=== PATIENT | female | born 1960 | race African-American/Black ===

== ENCOUNTER → 2021-06-23 | Outpatient (CLI) | payer OTHER ==
[~2021-06-23] VITALS: Ht 152.4 cm; Wt 68.0 kg
[~2021-06-23] MED LIST: METHADONE HCL40 MG PO; ULTRAM 50MG TAB50 MG PO
[2021-06-23 11:14] VITALS: BP 155/77
--- NOTE | 2021-06-23 11:34 | NUR ---
Pain Clinic Assessment: 1. History of Osteoarthritis: Not Applicable History of Rheumatoid Arthritis: Not Applicable 2. Height: 5 ft. 0 in. 152.4 cm. Weight: 150.0 lb. oz. 68.040 kg. Patient's BMI: 29.3 3. Vital Signs: BP: 155/77 Pulse: 64 Resp: 16 Temp: 02 Sat: 100 ECG Mon: 4. Pain Intensity: 6 5. Fall Risk: Dizziness: N Needs help standing or walking: N Fallen in the last 3 months: N Fall risk comments: 6. Patient on Blood Thinner: None 7. History of Hypertension: N 8. Opioid Therapy greater than 6 weeks: Y Opiate Contract Signed: 9. Risk Assessment Tool Provided: LOW-0 10. Functional Assessment Tool: 11. Recreational Drug Use: Never Drug Type: Tobacco Use: Current Every Day Smoker Tobacco Type: Cigarettes Amount or Packs/day: 2 CIG PER D How Many Years: 2 Alcohol Use: Yes Frequency: Weekly Quant: 3
--- NOTE | 2021-06-24 10:47 | HPC ---
[facility] [place] [address] PAIN MANAGEMENT CONSULTATION Name: OSKAR FERNÁNDEZ Room #: REG [facility]#: [id number] Admission: 06/23/21 Attend Phys: Yvan Palomino DO Discharge: Date of : 64 Report #: [id number] THIS REPORT FOR: cc: FAM - No family physician/PCP FAM - No family physician/PCP Yvan Palomino DO ~ DATE OF SERVICE: 06/23/2021 CHIEF COMPLAINT: Low back pain, bilateral lower extremity pain. HISTORY OF PRESENT ILLNESS: As you know, the patient is a 61-year-old female, who reports longstanding history of low back pain and bilateral upper buttock and bilateral lower extremity pain. The patient indicates pain began 11/19/2019. She denies injury or trauma. She has trialled conservative treatment to address this issue. She has also tried home exercise program without benefit. The patient currently takes methadone 90 mg per day. This is reportedly for opioid addiction. This is not for pain control. She sought evaluation with Dr. Diez in regards to possible surgical options to address low back and bilateral lower extremity symptoms. This was per the request of the patient's primary care physician, Dr. Oshea. It was determined at the last visit that the patient is not a surgical candidate and she was referred to our clinic to discuss interventional treatment options. The patient reports today her pain is continuous. She describes the pain as aching and pounding. Places current pain score 6/10, daily average at 8/10, worst pain has been is 8/10. The patient states pain is exacerbated with any type of activity, improves with rest and relaxation. The patient has been referred to our service to discuss interventional treatment options to address axial back pain and bilateral lower extremity pain. PAST MEDICAL HISTORY: 1. Osteoarthritis. 2. Seasonal allergies. 3. Opioid dependency. PAST SURGICAL HISTORY: Achilles surgery. SOCIAL HISTORY: The patient smokes 2 cigarettes per day, but has done as much as 1 pack per day for years. She denies IV or illicit drug use. Admits to approximately 3 alcohol beverages per week. She is a stay at home . She is not working, not receiving workmen's compensation nor is she trying to obtain disability benefits. She is not in litigation in regards to pain. She is unaccompanied at today's visit. REVIEW OF SYSTEMS: Positive for wearing corrective eyewear, blurred and double vision, heart trouble, low back pain, bilateral lower extremity pain. All other review of systems negative per 12-point review of systems other than those [address] [address] PAIN MANAGEMENT CONSULTATION Name: OSKAR FERNÁNDEZ Room #: REG [facility]#: [id number] Admission: 06/23/21 Attend Phys: Yvan Palomino DO Discharge: Date of : 64 Report #: [id number] listed in history of present illness. Pain impact score 32/70, moderate interference of daily activities secondary to pain. ALLERGIES: No known drug allergies. CURRENT MEDICATIONS: Methadone 90 mg per day. IMAGING: MRI lumbar spine obtained 03/23/2021 shows mild to moderate levoscoliosis from L2-L3 through L4-L5. No central canal narrowing, mild right foraminal narrowing at L2-L3, L3-L4 and mild left neural foraminal narrowing at L5-S1. PHYSICAL EXAMINATION: VITAL SIGNS: Blood pressure 155/77, pulse 64, respiratory rate 16 and unlabored. The patient 100% on room air. Height 5 feet tall, weight 150 pounds, BMI calculated 29.3. GENERAL: A well-developed, well-nourished, well-hydrated 61-year-old female, appears stated age. She is in no acute distress. Awake, alert and oriented x3. Current pain score is 6/10. HEENT: Normocephalic, atraumatic. Pupils equal, round and responsive to light. Extraocular muscles are intact. Speech is fluent. The patient deemed a good historian. She is wearing a mask in compliance with COVID-19 regulations. LUNGS: Clear. No wheeze, rhonchi, no rales. CARDIOVASCULAR: Regular. No appreciable gallop, no rub. ABDOMEN: Soft, mildly obese. EXTREMITIES: Show no clubbing, no cyanosis and no edema. MUSCULOSKELETAL: There is noted a levoscoliotic curvature of the lumbar spine. No spinous process tenderness. Seated straight leg raising is negative. Supine straight leg raising is negative bilaterally. Motor is 5/5 with no focal deficits. Reflexes 2+/4 at patella and Achilles. Ankle clonus negative. Babinski is negative. Fabere's test is negative. Modified Gaenslen's positive for axial low back pain. Ankle clonus negative. Babinski is negative. ASSESSMENT: 1. Spinal deformity. 2. Levoscoliosis of the lumbar spine with 32 degree Crowder angle. 3. Chronic low back pain. 4. Bilateral buttock and posterolateral thigh pain. 5. Spondylolisthesis at L4-L5. 6. Chronic lumbar radiculopathy. PLAN: 1. Based on today's physical exam, history the patient has provided, and the description the patient uses in regards to pain, it would appear she is [address] [address] PAIN MANAGEMENT CONSULTATION Name: OSKAR FERNÁNDEZ Room #: REG [facility]#: [id number] Admission: 06/23/21 Attend Phys: Yvan Palomino DO Discharge: Date of : 64 Report #: [id number] suffering from lumbar radiculopathy. The patient was seen by Neurosurgery and advised to trial conservative treatment in the form of a lumbar epidural injection to determine if her symptoms would improve with such procedures. The patient was subsequently then referred on to our clinic to discuss this option. We discussed with the patient today the findings of her imaging study. We are pleased to advise that there are only mild to moderate findings and no significant lateralizing features that would require surgery at this time. The patient received confirmation that this is the case from her Neurosurgeon prior to the referral to our clinic. We discussed with the patient the opportunity of undergoing a lumbar epidural injection. She is amenable to that procedure. 2. We will begin the authorization process for the patient to undergo lumbar epidural injection. We are hopeful this process can be done quickly. We will have the patient return once that authorization has been completed to undergo the first in a series of lumbar epidural injections under fluoroscopic guidance to address lumbar radicular pain. We have placed the patient on a tentative appointment for tomorrow, 06/24/2021. 3. No medication changes made at today's visit. We recommend the patient continue current medical therapy as prior prescribed. 4. We plan to see the patient back tomorrow to undergo lumbar epidural injection under fluoroscopic guidance in hopes of improving pain. We wish to thank Dr. Diez for the referral of this patient to our clinic. We will keep you apprised of her response to treatment as we address suspected lumbar radiculopathy. Again, we wish to thank you for the opportunity to see this patient in consultation. <ELECTRONICALLY SIGNED> By: Yvan Palomino DO 06/24/21 1047 [id number] [id number] Yvan Palomino DO /nt
== END ==
LOC: PAIN 06:42
PROVIDERS: ATTEND Anesthesiology Pain Medicine
DX: M41.86 Other forms of scoliosis, lumbar region (principal); G89.29 Other chronic pain; M43.16 Spondylolisthesis, lumbar region; Z79.899 Other long term (current) drug therapy; Z79.891 Long term (current) use of opiate analgesic

== ENCOUNTER → 2021-06-24 | Outpatient (CLI) | payer OTHER ==
[~2021-06-24] VITALS: Ht 152.4 cm; Wt 68.0 kg
--- NOTE | ~2021-06-24 | HPC ---
[facility] [place] [address] [place] [address] PAIN MANAGEMENT CONSULTATION Name: OSKAR FERNÁNDEZ [id number] Admission: 06/24/21 Attend Phys: Yvan Palomino DO Discharge: Date of : 64 Report #: [id number] THIS REPORT FOR: cc: FAM - No family physician/PCP FAM - No family physician/PCP Yvan Palomino DO ~ DATE OF SERVICE: 06/24/2021 CHIEF COMPLAINT: Low back pain, left lower extremity pain with paresthesias. HISTORY OF PRESENT ILLNESS: As you know, the patient is a 61-year-old female who reports low back pain, bilateral upper buttock and posterolateral thigh pain has been present since 11/19/2020. No injury or trauma. She has been referred to our service by the referring physician to trial epidural injection under fluoroscopic guidance. The patient was seen in consultation on 06/23/2021 and established today's appointment to undergo lumbar epidural injection under fluoroscopic guidance. This authorization had to be obtained. ALLERGIES: No known drug allergies. CURRENT MEDICATIONS: Methadone 90 mg once a day. SOCIAL HISTORY: The patient smokes 2 cigarettes per day, has done so up to 1 pack a day for years. Denies IV or illicit drug use. Admits to 3 alcoholic beverages per week. She is unaccompanied at today's visit. IMAGING: No new imaging available. PHYSICAL EXAMINATION: VITAL SIGNS: Blood pressure 158/81, pulse 66, respiratory rate 14 and unlabored. The patient is 98% on room air. Height 5 feet tall, 150 pounds, BMI calculated 29.3. GENERAL: Well-developed, well-nourished, well-hydrated 61-year-old female, appears stated age, pain is rated at 6/10. HEENT: Normocephalic, atraumatic. Pupils equal, round and responsive. She is wearing a mask in compliance with COVID-19 regulations. EXTREMITIES: Show no clubbing, no cyanosis, no edema. MUSCULOSKELETAL: Noted levoscoliotic curvature once again of the lumbar spine. No spinous process tenderness. Seated straight leg raising negative. Supine straight leg raising is negative. Motor is 5/5. Gait is normal. ASSESSMENT: 1. Spinal deformity. 2. Levoscoliosis of the lumbar spine with 30-degree Crowder angle. 3. Chronic low back pain. 4. Bilateral buttock and posterolateral thigh pain. [address] [address] PAIN MANAGEMENT CONSULTATION Name: OSKAR FERNÁNDEZ [facility] [id number] Admission: 06/24/21 Attend Phys: Yvan Palomino DO Discharge: Date of : 64 Report #: [id number] 5. Spondylolisthesis of L4 on L5. 6. Chronic lumbar radiculopathy. PLAN: 1. The patient returns today in followup visit to undergo lumbar epidural injection under fluoroscopic guidance. She has been advised of the risks and the benefits of this procedure. These risks include but are not necessarily limited to bleeding, bruising, infection, worsening pain, no relief of pain, also risk of temporary or permanent muscle weakness, temporary or permanent nerve damage, possible paralysis, and . The patient states understood and wished to proceed. 2. Patient will return to our clinic in 30 days. At that time, review the efficacy of today's epidural injection and determine if next in the series of epidural injections would be recommended. 3. We will see the patient back in followup visit for the next in the series of lumbar epidural injections. We are hopeful the patient will see good and prolonged benefit with this injection. PROCEDURE NOTE DESCRIPTION OF PROCEDURE: L5-S1 left parasagittal epidural steroid injection under fluoroscopic guidance. This is the first procedure of the first in series that the patient is undergoing. After obtaining written consent, the patient was taken back to the fluoroscopy suite, placed in a prone position with pillow under the abdomen to decrease lumbar lordosis. The skin overlying the lumbosacral area was then prepped and draped in aseptic fashion. The L5-S1 vertebral interspace was then identified by AP fluoroscopy. The skin and subcutaneous tissue overlying the target site of injection was anesthetized with 3 mL 1% lidocaine. A 20-gauge 3-1/2 inch Tuohy needle was then advanced under fluoroscopic guidance towards the epidural space using a left parasagittal approach. The epidural space was identified using loss of resistance to air technique. After negative aspiration for heme or cerebrospinal fluid, a total of 1 mL of Omnipaque was injected. A lumbar epidurogram was confirmed using both AP and lateral fluoroscopy. After negative aspiration for heme or cerebrospinal fluid, 5 mL solution containing 2 mL 40 mg per mL 80 mg total triamcinolone along with 3 mL of lidocaine 1% was injected in increments. Contrast spread was noted in posterior epidural space. The needle was then retracted approximately half way and needle tract flushed with 1 mL of 1% lidocaine. Needle was then removed. There were no apparent sensory or motor deficits in the lower extremity following the procedure. A sterile bandage was placed over the injection site. [address] [address] PAIN MANAGEMENT CONSULTATION Name: OSKAR FERNÁNDEZ [id number] Admission: 06/24/21 Attend Phys: Yvan Palomino DO Discharge: Date of : 64 Report #: [id number] The heart rate, pulse, oximetry and blood pressure were continuously monitored after the procedure. There were no apparent complications. The patient tolerated the procedure well and was carefully escorted to the recovery room in stable condition. There were no apparent complications. After meeting discharge criteria, the patient was then discharged home. By: 0725 2036 Yvan Palomino DO /nt
[2021-06-24 11:15] VITALS: BP 158/81
--- NOTE | 2021-06-24 11:28 | NUR ---
Pain Clinic Assessment: 1. History of Osteoarthritis: Not Applicable History of Rheumatoid Arthritis: Not Applicable 2. Height: 5 ft. 0 in. 152.4 cm. Weight: 150.0 lb. oz. 68.040 kg. Patient's BMI: 29.3 3. Vital Signs: BP: 158/81 Pulse: 66 Resp: 14 Temp: 02 Sat: 98 ECG Mon: 4. Pain Intensity: 6 5. Fall Risk: Dizziness: N Needs help standing or walking: N Fallen in the last 3 months: N Fall risk comments: 6. Patient on Blood Thinner: None 7. History of Hypertension: N 8. Opioid Therapy greater than 6 weeks: Y Opiate Contract Signed: 9. Risk Assessment Tool Provided: LOW-0 10. Functional Assessment Tool: 11. Recreational Drug Use: Never Drug Type: Tobacco Use: Current Every Day Smoker Tobacco Type: Cigarettes Amount or Packs/day: 2/D How Many Years: Alcohol Use: Yes Frequency: Weekly Quant: 3
== END | disposition home or self-care (01) ==
LOC: PAIN 07:07
PROVIDERS: ATTEND Anesthesiology Pain Medicine
DX: M54.16 Radiculopathy, lumbar region (principal); G89.29 Other chronic pain; M43.16 Spondylolisthesis, lumbar region; M41.86 Other forms of scoliosis, lumbar region; F17.210 Nicotine dependence, cigarettes, uncomplicated; Z98.890 Other specified postprocedural states; Z79.899 Other long term (current) drug therapy